=== PATIENT | female | born 1980 | race Caucasian/White ===

== ENCOUNTER 2017-08-20 22:46 | Emergency (ER) | payer SELFPAY ==
[2017-08-20 22:53] VITALS: BP 148/83
--- NOTE | 2017-08-21 00:21 | ER Document Report ---
HPI - HPI Patient complains to provider of: right toe pain Pain Level: 4 Context: Patient is a 37-year-old female presents emergency department complaining of right big toe pain for the past 3 days. Patient states that she denies any trauma, injury to the toe but she does admit that her dogs running all over her feet when she was admitted out of the house. Otherwise she denies any redness, tenderness. Been able to bear weight admits to mild swelling. Patient is a type I diabetic but denies a history of gout - REPRODUCTIVE LMP: 08/08/17 - DERM Skin Color: Normal Past Medical History - Social History Smoking Status: Never Smoker Family History: Reviewed & Not Pertinent Patient has suicidal ideation: No Patient has homicidal ideation: No Renal/ Medical History: Denies: Hx Peritoneal Dialysis Vertical Provider Document - CONSTITUTIONAL Notes: PHYSICAL EXAM GENERAL: Alert, interacts well. EXTREMITIES: Moves all 4 extremities spontaneously. No edema, radial and dorsalis pedis pulses 2/4 bilaterally. No cyanosis. No evidence of erythema, edema, tenderness. Full range of motion NEUROLOGICAL: Alert and oriented x4. Normal speech. PSYCH: Normal affect, normal mood. SKIN: Warm, dry, normal turgor. No rashes or lesions noted. - INFECTION CONTROL TRAVEL OUTSIDE OF THE [place] IN LAST 30 DAYS: No - RESPIRATORY O2 Sat by Pulse Oximetry: 98 Course - Re-evaluation Re-evalutation: 08/21/17 12:30 Patient is a 37-year-old female is hemodynamically stable, no acute distress afebrile. No evidence of direct trauma to the toe with preserved range of motion sensation. No evidence of a septic joint, gout flare, dislocation, or fracture on exam and imaging. Vitals wnl. At this time, I do not see an indication for labs or further imaging. Will discharge with conservative measures, return precautions, and follow-up recommendations. - Vital Signs Vital signs: Temp Pulse Resp BP Pulse Ox 98.7 F 79 20 148/83 H 98 08/20/17 22:51 08/20/17 22:51 08/20/17 22:51 08/20/17 22:51 08/20/17 22:51 - Diagnostic Test Radiology reviewed: Image reviewed, Reports reviewed Discharge - Discharge Clinical Impression: Toe pain Condition: Good Disposition: HOME, SELF-CARE Instructions: Ibuprofen (General) ([facility]), Sprained Toe ([facility])
--- NOTE | 2017-08-21 01:09 | RADIOLOGY REPORT (SQ) ---
EXAM DESCRIPTION: TOE RIGHT CLINICAL HISTORY: right big toe pain for 3 days, no erythema COMPARISON: None. FINDINGS: 3 views of the right first toe. No acute fracture or dislocation. Normal osseous mineralization. No radiopaque foreign body. The tarsals and metatarsals are appropriately aligned. Joint spaces preserved. No erosions identified. IMPRESSION: No acute fracture or dislocation.
== END 2017-08-21 01:25 | disposition home or self-care (01) ==
LOC: ER 22:46
DX: M79.674 Pain in right toe(s) (principal)
CPT/HCPCS: 99283